=== PATIENT | female | born 1950 | race Caucasian/White ===

== ENCOUNTER → 2017-09-29 | Outpatient (CLI) | payer OTHER, BC | LOC: CAT 09:02 | DX: N85.8 Other specified noninflammatory disorders of uterus (principal) ==

== ENCOUNTER → 2017-10-15 | Outpatient (CLI) | payer OTHER, BC | LOC: ULTRA 08:08 | DX: D36.7 Benign neoplasm of other specified sites (principal) ==

== ENCOUNTER → 2019-11-21 | Outpatient (CLI) | payer OTHER | LOC: CAT 09:26 | DX: Z13.6 Encounter for screening for cardiovascular disorders (principal); E78.00 Pure hypercholesterolemia, unspecified; I25.10 Atherosclerotic heart disease of native coronary artery without angina pectoris ==

== ENCOUNTER → 2020-01-04 | Outpatient (CLI) | payer OTHER, BC ==
[2020-01-04 11:10] LABS: CREATININE 0.7 mg/dL (0.6-1.0)
== END ==
LOC: CAT 10:08
PROVIDERS: Family Medicine
DX: K44.9 Diaphragmatic hernia without obstruction or gangrene (principal); K42.9 Umbilical hernia without obstruction or gangrene; I77.811 Abdominal aortic ectasia; K56.41 Fecal impaction; M25.78 Osteophyte, vertebrae; D25.9 Leiomyoma of uterus, unspecified

== ENCOUNTER 2020-04-16 06:04 | Day surgery (SDC) | payer OTHER, BC ==
[~2020-04-16] VITALS: Ht 167.6 cm; Wt 79.4 kg
[~2020-04-16 06:04] MED LIST: IBUPROFEN 200200 M1 PO; PRED FORTE 1% EY5 M1 OPHTHALMIC; SULFAZINE500 MG PO
[2020-04-16 07:03] LABS: HEMATOCRIT 38.4 % (37.0-47.0); HEMOGLOBIN 13.1 gm/dL (12.0-15.0); MCH 35.4 pg (26.0-34.0); MCHC 34.2 g/dL (28.0-37.0); MCV 103.7 fL (80.0-100.0); RBC 3.7 mil/uL (4.20-5.00); RDW 13.5 % (10.5-14.5); WBC 3.4 thou/uL (4.0-11.0)
[2020-04-16 07:04] VITALS: BP 142/55
[2020-04-16 07:17] LABS: CALCIUM 9.2 mg/dL (8.5-10.1); CREATININE 0.6 mg/dL (0.6-1.0); POTASSIUM 4.2 mmol/L (3.5-5.1)
[2020-04-16] MEDS ORDERED: MIRALAX17 GM PO (09:28)
[2020-04-16] MEDS ORDERED: COLACE 100 MG100 MG PO (09:28)
[2020-04-16] MEDS ORDERED: ACETAMINOPHEN325 M1 PO (09:28)
[2020-04-16] MEDS ORDERED: OXYCODONE HCL 55 MG PO (09:28)
--- NOTE | 2020-04-18 12:07 | PATH ---
[facility] [address] [place] [address] PATHOLOGY RPT PROCEDURE Name: MERCY BROWN Room #: DEP [facility] [place] M.R.#: [id number] Admission: 04/16/20 Date of : 46 Discharge: 04/16/20 Report #: [id number] Path Case #: [id number] [facility] Accession Number: [id number] . 01 Material submitted: . hernia - HERNIA SAC . 01 Clinical history: . Ventral hernia . 02 Diagnosis: Hernia sac, repair: - Fibrovascular connective tissue associated with reactive changes, and lined by mesothelium, consistent with a hernia sac. (IUV:minesh; 04/17/2020) QMS 04/17/2020 1409 Local . 02 Electronically signed: . Aditi Acevedo MD, Pathologist NPI- [id number] . 01 Gross description: . The specimen is received in formalin, labeled "Mercy Brown, hernia sac". Received is a segment of fibromembranous tissue measuring 1.8 x 1.7 x 0.8 cm in greatest dimensions. No distinct nodules or lesions are noted grossly. The specimen is submitted representatively in cassette A1. (CAA; 04/16/2020) QA/[facility] 04/16/2020 1721 Local . 02 Pathologist provided ICD-10: K43.9 . 02 CPT . 663289 Specimen Comment: A courtesy copy of this report has been sent to [phone], [phone]- Specimen Comment: [id number] Specimen Comment: Report sent to / DR FRANCIS Performed at: [address] [facility], [place], [place] [id number] MD Derrick Marinelli MD Phone: [phone] Performed at: [address], [place] [id number] MD Aditi Acevedo MD Phone: [phone]
== END 2020-04-16 11:07 | disposition home or self-care (01) ==
LOC: OR 06:04 → TBA 06:04 → OR 11:07
PROVIDERS: ATTEND Surgery
DX: K43.9 Ventral hernia without obstruction or gangrene (principal); M19.90 Unspecified osteoarthritis, unspecified site; M06.9 Rheumatoid arthritis, unspecified; Z98.51 Tubal ligation status; Z94.7 Corneal transplant status; Z98.890 Other specified postprocedural states; Z79.899 Other long term (current) drug therapy; Z11.59 Encounter for screening for other viral diseases
CPT/HCPCS: 50010; 50101; 50249; 50386; 50455; 50555; 50558; 50980; 52265; 53307; 53310; 54022; 54118; 56462; 56525; 56526; 56530; 57092; 62110; 62900; 70005